=== PATIENT | female | born 1970 | race Caucasian/White ===

== ENCOUNTER 2017-01-08 10:53 | Emergency (ER) | payer MEDICAID ==
[~2017-01-08] VITALS: Ht 157.5 cm; Wt 108.5 kg
[2017-01-08 11:04] VITALS: Ht 157.5 cm; Wt 108.5 kg
[2017-01-08] MEDS ORDERED: TRAZ100T15 PO (11:28)
[2017-01-08] MEDS ORDERED: BEN25 PO ×2 (11:28)
--- NOTE | 2017-01-08 11:31 | ERD ---
ER Documentation Chief Complaint Date/Time DATE: 01/08/17 TIME: 11:29 Chief Complaint Complains of insomnia x 3 weeks HPI This 46-year-old female presents with a chief complaint of insomnia for last 3 weeks. History significant according to the daughter who is here with her for schizophrenia and recently moving from [place] and not having medication. She is taking trazodone in the past which is helped with her insomnia. The attempting to get into the local [facility] for having some transfer of insurance issues. ROS All systems reviewed and are negative except as per history of present illness. Medications Home Meds Active Scripts Diphenhydramine Hcl* (Benadryl*) 25 Mg Cap, 25 MG PO QHS, #30 CAP Prov:LARRY DENNY MD 01/08/17 Trazodone Hcl* (Trazodone Hcl*) 100 Mg Tablet, 100 MG PO QHS, #30 TAB Prov:LARRY DENNY MD 01/08/17 Discontinued Scripts Diphenhydramine Hcl* (Benadryl*) 25 Mg Cap, 25 MG PO Q6H Y for ITCHING, #20 CAP Prov:LARRY DENNY MD 01/08/17 Physical Exam Vitals Vital Signs Date Time Temp Pulse Resp B/P Pulse Ox O2 Delivery O2 Flow Rate FiO2 01/08/17 11:04 97.7 88 20 157/80 96 Physical Exam Const: [], [id number] per Head: Atraumatic Eyes: Normal Conjunctiva ENT: Normal External Ears, Nose and Mouth. Neck: Full range of motion..~ No meningismus. Resp: Clear to auscultation bilaterally Cardio: Regular rate and rhythm, no murmurs Abd: Soft, non tender, non distended. Normal bowel sounds Skin: No petechiae or rashes Back: No midline or flank tenderness Ext: No cyanosis, or edema Neur: Awake and alert. No appreciable focal neurologic deficits. Psych: Decreased affect. No suicidal or homicidal ideations and acting appropriately . Procedures/MDM Patient presents with a history of schizophrenia with history of insomnia and out of her usual medication which is trazodone. Patient was given a short refill as well as Benadryl for sleep. [facility] will [facility] in reinforcement was provided to attempt to get primary care. There is no signs or symptoms of homicidal or suicidal ideations or danger to self or grAVE disability. The patient was stable with no new complaints during the ER course. Clinically, there is no current evidence to suggest meningitis, sepsis, acute abdomen, pneumonia, acute coronary syndrome, pulmonary embolism, or any other emergent condition appearing to require further evaluation or hospitalization. The patient should certainly return for any new or worsening symptoms per the aftercare instructions. They should otherwise follow-up with her primary care doctor for reevaluation this week. Departure Diagnosis: Primary Impression: Insomnia Insomnia type: unspecified Qualified Code: G47.00 - Insomnia, unspecified type Condition: Stable Patient Instructions: Insomnia [facility] Usted se joyce hecho un examen mdico de control que le indica que no est en tanisha condicin que requiera tratamiento urgente en el Departamento de Emergencia. Un estudio ms profundo y el tratamiento de coles condicin pueden esperar sin ningn riesgo hasta que usted sea atendida/o en el consultorio de coles mdico o tanisha cl juan f. Es responsabilidad suya arreglar tanisha primo para el seguimiento del antonio. MANEJO DE CONDICIONES NO URGENTES EN EL FUTURO 1) Si usted tiene un mdico de atencin primaria: Usted debera llamar a coles mdico de atencin primaria antes de venir al departamento de emergencia. Despus de las horas de consultorio, coles doctor o coles asociado/a est disponible por telfono. El mdico o enfermero de anthony en el servicio telefnico puede asesorarle por vicky medio para atender el problema, o antonio contrario se puede programar tanisha primo. 2) Si usted no tiene un mdico de atencin primaria: Llame al mdico o clnica de referencia que aparece abajo gregory las horas de consultorio para hacer tanisha primo para que le vean. CLINICAS: [facility] [phone] [id number] [facility] [place] [address] [phone] [facility] [phone] [facility] [phone] [facility] [phone] [address] [facility] [phone] [address] Additional Instructions: Recommend follow-up with [facility] for further evaluation treatment and possible referral. LARRY DENNY MD Jan 08, 2017 11:31
== END 2017-01-08 12:25 | disposition home or self-care (01) ==
LOC: FTE 10:53
DX: G47.00 Insomnia, unspecified (principal)
CPT/HCPCS: 99283